=== PATIENT | male | born 1945 | race African-American/Black ===

== ENCOUNTER 2017-11-29 14:20 | Inpatient (IN) | payer OTHER, MEDICARE ==
[~2017-11-29] VITALS: Ht 170.2 cm; Wt 68.5 kg
[~2017-11-29 14:20] MED LIST: ASPI81; ENAL20TA81; METO50TA; TELM1TAB56; VERA240CR
[2017-11-29 14:34] VITALS: BP 154/93; PULSE 100; RESP 18; TEMP 97.7; O2SAT 97
--- NOTE | 2017-11-29 14:39 | PD ---
HPI Chief Complaint: Diabetic Time Seen by Provider: 14:32 Travel History International Travel<30 days: No Contact w/Intl Traveler<30days: No Traveled to known affect area: No History of Present Illness HPI 72-year-old male presents with complaint of high blood sugar. Been having polyuria and feeling weak and dizzy at times. He has had some borderline blood sugars in the past. He has checked his sugar several times over the last 2 days and they have been high. he has a history of COPD. He is on inhaled steroids but not oral steroids at this time he is not on any medication for diabetes he has been urinating frequently PFS Past Medical History High Cholesterol: Yes COPD: Yes Diabetes: Yes ("PRE") Patient Takes Glucophage: No Diminished Hearing: Yes Hypertension: Yes Renal Failure: Yes Tetanus Vaccination: > 5 Years Influenza Vaccination: Yes Past Surgical History Genitourinary Surgery: Yes (ENLARGED PROSTATE) Social History Alcohol Use: No Tobacco Use: Yes Substance Use: No Allergies-Medications (Allergen,Severity, Reaction): Coded Allergies: oxycodone (Verified Allergy, Severe, Nausea/Vomiting, 11/29/17) No Known Allergies (Verified Allergy, Mild, 09/11/06) Reported Meds & Prescriptions Reported Meds & Active Scripts Active Reported Budesonide Neb 0.25 Mg/2 Ml Neb 0.25 Mg NEB TID NEB Baclofen 10 Mg Tab 10 Mg PO TID Atorvastatin (Atorvastatin Calcium) 20 Mg Tab 20 Mg PO HS Benzonatate 100 Mg Cap 100 Mg PO TID PRN Albuterol Neb (Albuterol Sulfate) 2.5 Mg/3 Ml Neb 2.5 Mg NEB TID NEB PRN Symbicort Inh (Budesonide/Formoterol Fumarate) 160-4.5 Mcg/Act Aero 1 Puff INH Q12HR Ventolin Hfa 18 GM Inh (Albuterol Sulfate) 90 Mcg/Act Aer 2 Puff INH Q4-6H PRN Methazolamide 50 Mg Tab 50 Mg PO BID Vitamin D3 (Cholecalciferol) 2,000 Unit Cap 2,000 Units PO DAILY Aspirin 81 Mg Chew 81 Mg CHEW DAILY Trazodone (Trazodone HCl) 100 Mg Tablet 100 Mg PO HS Amlodipine (Amlodipine Besylate) 10 Mg Tab 10 Mg PO DAILY Review of Systems General / Constitutional: No: Fever, Chills Eyes: No: Diploplia, Blurred Vision HENT: No: Headaches, Vertigo Cardiovascular: No: Chest Pain or Discomfort, Palpitations Respiratory: Positive: Cough, No: Shortness of Breath Gastrointestinal: No: Nausea, Vomiting Genitourinary: Positive: Frequency, No: Urgency Musculoskeletal: No: Myalgias Skin: No Rash, No Itching Neurologic: No: Weakness Psychiatric: No: Anxiety Endocrine: Positive: Polyuria, Polydipsia, No: Heat Intolerance Hematologic/Lymphatic: No: Easy Bruising Physical Exam Narrative GENERAL: Well-developed male SKIN: Focused skin assessment warm/dry. HEAD: Atraumatic. Normocephalic. EYES: Pupils equal and round. No scleral icterus. No injection or drainage. ENT: No nasal bleeding or discharge. Mucous membranes pink and moist. NECK: Trachea midline. No JVD. CARDIOVASCULAR: Regular rate and rhythm. No murmur appreciated. RESPIRATORY: No accessory muscle use. Clear to auscultation. Breath sounds equal bilaterally. GASTROINTESTINAL: Abdomen soft, non-tender, nondistended. Hepatic and splenic margins not palpable. MUSCULOSKELETAL: No obvious deformities. No clubbing. No cyanosis. No edema. NEUROLOGICAL: Awake and alert. No obvious cranial nerve deficits. Motor grossly within normal limits. Normal speech. PSYCHIATRIC: Appropriate mood and affect; insight and judgment normal. Data Data Last Documented VS Vital Signs Date Time Temp Pulse Resp B/P (MAP) Pulse Ox O2 Delivery O2 Flow Rate FiO2 11/29/17 14:37 (113) 11/29/17 14:34 Room Air 11/29/17 14:34 97.7 100 18 97 Orders Orders Complete Blood Count With Diff (11/29/17 14:37) Basic Metabolic Panel (Bmp) (11/29/17 14:37) Urinalysis - C+S If Indicated (11/29/17 14:37) Beta Hydroxybutyrate (Acetone) (11/29/17 14:37) Sodium Chlor 0.9% 1000 Ml Inj (Ns 1000 M (11/29/17 14:45) Sodium Chlor 0.9% 1000 Ml Inj (Ns 1000 M (11/29/17 14:45) Insulin Human Regular Inj (Novolin R Inj (11/29/17 14:45) Electrocardiogram (11/29/17 15:22) Chest, Single Ap (11/29/17 15:22) Labs Laboratory Tests Test 11/29/17 14:45 11/29/17 14:50 White Blood Count 8.5 TH/MM3 Red Blood Count 5.30 MIL/MM3 Hemoglobin 15.6 GM/DL Hematocrit 47.3 % Mean Corpuscular Volume 89.2 FL Mean Corpuscular Hemoglobin 29.5 PG Mean Corpuscular Hemoglobin Concent 33.0 % Red Cell Distribution Width 12.9 % Platelet Count 165 TH/MM3 Mean Platelet Volume 8.3 FL Neutrophils (%) (Auto) 72.5 % Lymphocytes (%) (Auto) 14.9 % Monocytes (%) (Auto) 7.1 % Eosinophils (%) (Auto) 1.1 % Basophils (%) (Auto) 4.4 % Neutrophils # (Auto) 6.1 TH/MM3 Lymphocytes # (Auto) 1.3 TH/MM3 Monocytes # (Auto) 0.6 TH/MM3 Eosinophils # (Auto) 0.1 TH/MM3 Basophils # (Auto) 0.4 TH/MM3 CBC Comment DIFF FINAL Differential Comment Blood Urea Nitrogen 36 MG/DL Creatinine 2.70 MG/DL Random Glucose 816 MG/DL Calcium Level 9.2 MG/DL Sodium Level 120 MEQ/L Potassium Level 4.9 MEQ/L Chloride Level 88 MEQ/L Carbon Dioxide Level 23.0 MEQ/L Anion Gap 9 MEQ/L Estimat Glomerular Filtration Rate 28 ML/MIN B-Hydroxybutyrate 0.24 MMOL/L Urine Collection Type CLEAN CATCH Urine Color YELLOW Urine Turbidity CLEAR Urine pH 5.0 Urine Specific [place] 1.027 Urine Protein NEG mg/dL Urine Glucose (UA) 1000 OR GREATER mg/dL Urine Ketones NEG mg/dL Urine Occult Blood TRACE Urine Nitrite NEG Urine Bilirubin NEG Urine Urobilinogen 0.2 MG/DL Urine Leukocyte Esterase NEG Urine RBC 0-3 /hpf Urine WBC 0-2 /hpf Urine Squamous Epithelial Cells 0-5 /hpf Microscopic Urinalysis Comment CULT NOT INDICATED Urine Collection Time 14:50 MDM Medical Decision Making Medical Screen Exam Complete: Yes Emergency Medical Condition: Yes Medical Record Reviewed: Yes Differential Diagnosis Differential includes DKA, hyperglycemia, Narrative Course IV fluids were started. The patient's sodium has come back at 120 and his sugar is 816. His BUN is 36 with a creatinine of 2.7. He had blood work in 2012 here and at that time his creatinine was 2. His beta hydroxybutyrate is 0.24. Patient has hyperglycemia without acidosis Diagnosis Primary Impression: Uncontrolled diabetes mellitus Additional Impressions: Dehydration Hyponatremia Admitting Information Admitting Physician Requests: Admit London Christensen MD Nov 29, 2017 14:39
[2017-11-29] MEDS ORDERED: TRAZ100T10 PO (14:43)
[2017-11-29] MEDS ORDERED: BUDE0.25 NEB (14:43)
[2017-11-29] MEDS ORDERED: ALBU0.08 NEB (14:43)
[2017-11-29] MEDS ORDERED: VENTAER INH (14:43)
[2017-11-29] MEDS ORDERED: BENZ1CAP54 PO (14:43)
[2017-11-29] MEDS ORDERED: ASPI-516 CHEW (14:43)
[2017-11-29] MEDS ORDERED: BACL10TA PO (14:43)
[2017-11-29] MEDS ORDERED: ATOR20TA15 PO (14:43)
[2017-11-29] MEDS ORDERED: VITA2000 PO (14:43)
[2017-11-29] MEDS ORDERED: AMLO10TA2 PO (14:43)
[2017-11-29] MEDS ORDERED: METH50TA2 PO (14:43)
[2017-11-29] MEDS ORDERED: SYMB160A INH (14:43)
[2017-11-29] MEDS ORDERED: INSULIN HUMAN REGULAR 1,000 UNITS/10 ML VIAL SQ ONE ×2 (14:45→15:45)
[2017-11-29] MEDS ORDERED: SODIUM CHLOR 0.9% 1000 ML INJ 1,000 ML IV ONE ×2 (14:45)
[2017-11-29 14:56] LABS: AUTOMATED NEUTROPHIL # 6.1 TH/MM3 (1.8-7.7); BASOPHIL # 0.4 TH/MM3 (0-0.2); BASOPHIL % 4.4 % (0.0-2.0); EOSINOPHIL # 0.1 TH/MM3 (0-0.4); EOSINOPHIL % 1.1 % (0.0-4.0); HEMATOCRIT 47.3 % (39.0-51.0); HEMOGLOBIN 15.6 GM/DL (13.0-17.0); LYMPH % 14.9 % (9.0-44.0); LYMPHOCYTE # 1.3 TH/MM3 (1.0-4.8); MEAN CELL VOLUME 89.2 FL (80.0-100.0); MEAN CORPUSCULAR HEMOGLOBIN 29.5 PG (27.0-34.0); MEAN PLATELET VOLUME 8.3 FL (7.0-11.0); MONO % 7.1 % (0.0-8.0); MONOCYTE # 0.6 TH/MM3 (0-0.9); NEUT % 72.5 % (16.0-70.0); PLATELET COUNT 165 TH/MM3 (150-450); RED CELL DISTRIBUTION WIDTH 12.9 % (11.6-17.2); WHITE BLOOD COUNT 8.5 TH/MM3 (4.0-11.0)
[2017-11-29 15:13] LABS: BILIRUBIN, URINE NEG (NEG); BLOOD, URINE TRACE (NEG); GLUCOSE,URINE 1000 OR GREATER mg/dL (NEG); KETONE, URINE NEG (NEG); NITRITE,URINE NEG (NEG); URINE COLOR YELLOW (YELLW/STRAW); URINE LEUKOCYTE ESTERASE NEG (NEG)
[2017-11-29 15:13] LABS: CALCIUM 9.2 MG/DL (8.5-10.1); CREATININE 2.7 MG/DL (0.60-1.30)
[2017-11-29 15:18] LABS: RBC, URINE 0-3 /hpf (0-3); SQUAMOUS EPITHELIAL CELL URINE 0-5 /hpf (0-5); WBC, URINE 0-2 /hpf (0-5)
[2017-11-29] MEDS ORDERED: ACETAMINOPHEN 325 MG TAB PO PRN (15:45)
[2017-11-29] MEDS ORDERED: NALOXONE HCL 0.4 MG/ML AMP IV PUSH PRN (15:45)
[2017-11-29] MEDS ORDERED: GLUCAGON 1 MG/ML VIAL OTHER PRN (15:45)
[2017-11-29] MEDS ORDERED: DEXTROSE 50% IN WATER 50 ML VIAL(D50) IV PUSH PRN (15:45)
[2017-11-29] MEDS ORDERED: SODIUM CHLORIDE 0.9% FLUSH 10 ML FLUSH IV FLUSH PRN (15:45)
[2017-11-29] MEDS ORDERED: ALBUTEROL SULFATE 90 MCG/ACT HFA 8 GM INHALER INH PRN (15:45)
[2017-11-29] MEDS ORDERED: SENNOSIDES 8.6 MG TAB PO PRN (15:45)
--- NOTE | 2017-11-29 15:52 | RADRPT ---
EXAM DATE/TIME: 11/29/2017 15:36 [facility] COMPARISON: No previous studies available for comparison. INDICATIONS : Cough. MEDICAL HISTORY : Hypercholesterolemia. Diabetes mellitus type II. Chronic obstructive pulmonary disease. Hypertens ion. Renal failure. SURGICAL HISTORY : None. ENCOUNTER: Initial ACUITY: 1 day PAIN SCORE: 0/10 LOCATION: Bilateral chest FINDINGS: A single view of the chest demonstrates the lungs to be symmetrically aerated without evidence of mas s, infiltrate or effusion. The cardiomediastinal contours are unremarkable. Osseous structures are intact. CONCLUSION: Normal examination for a patient of this age. Lizandro Donohue MD on November 29, 2017 at 15:50 Board Certified Radiologist. This report was verified electronically.
[2017-11-29] MEDS ORDERED: ENOXAPARIN SODIUM 30 MG/0.3 ML SYRINGE SQ SCH (16:00)
--- NOTE | 2017-11-29 16:16 | HHI.HP ---
HPI Service [facility] Primary Care Physician No Primary Care Physician Admission Diagnosis UNCONTROLLED DIABETES Diagnoses: Chief Complaint: Polyuria, polydipsia, generalized weakness Travel History International Travel<30 Days: No Contact w/Intl Traveler <30 Da: No Traveled to Known Affected Are: No History of Present Illness This is a pleasant 72-year-old male patient with a known medical history of hyperlipidemia, COPD, hypertension and chronic renal failure who presented to the ED with polyuria, polydipsia and generalized weakness. Patient states the last week he has been feeling "groggy" and generally weak, states he is been drinking more water and having polyuria. He also complains of intermittent blurry vision which he relates to his glaucoma. Patient does state that he has been diagnosed with borderline diabetes in the past but not on any medications for diabetes. Upon presentation patient's random glucose was 816 with presence of glucose in the urine. Anion gap closed. No traces of ketones in the urine. He denies any recent illness including fever, chills, cough, headache, chest pain, abdominal pain, nausea, vomiting, diarrhea dysuria. Patient does see Dr. Cuadra, pulmonology, for management of his COPD. Denies any recent oral steroid use although has been prescribed antibiotics for upper respiratory infection. Patient also sees Dr. Lopez, nephrology, for chronic kidney disease. Review of Systems Constitutional: DENIES: Fatigue, Fever Endocrine: COMPLAINS OF: Polydipsia, Polyuria Eyes: COMPLAINS OF: Blurred vision, DENIES: Diplopia Respiratory: DENIES: Cough, Sputum production, Shortness of breath Cardiovascular: DENIES: Chest pain, Palpitations Gastrointestinal: DENIES: Abdominal pain, Black stools, Bloody stools, Constipation, Diarrhea, Nausea, Vomiting Neurologic: DENIES: Abnormal gait Psychiatric: DENIES: Anxiety Except as stated in HPI: all other systems reviewed are Neg Past Family Social History Past Medical History Hypertension Hyperlipidemia COPD Chronic renal failure Glaucoma Past Surgical History Enlarged prostate repair Unspecified abdominal/bladder repair Left leg unspecified repair for broken bones Reported Medications Reported Meds & Active Scripts Active Reported Budesonide Neb 0.25 Mg/2 Ml Neb 0.25 Mg NEB TID NEB Baclofen 10 Mg Tab 10 Mg PO TID Atorvastatin (Atorvastatin Calcium) 20 Mg Tab 20 Mg PO HS Benzonatate 100 Mg Cap 100 Mg PO TID PRN Albuterol Neb (Albuterol Sulfate) 2.5 Mg/3 Ml Neb 2.5 Mg NEB TID NEB PRN Symbicort Inh (Budesonide/Formoterol Fumarate) 160-4.5 Mcg/Act Aero 1 Puff INH Q12HR Ventolin Hfa 18 GM Inh (Albuterol Sulfate) 90 Mcg/Act Aer 2 Puff INH Q4-6H PRN Methazolamide 50 Mg Tab 50 Mg PO BID Vitamin D3 (Cholecalciferol) 2,000 Unit Cap 2,000 Units PO DAILY Aspirin 81 Mg Chew 81 Mg CHEW DAILY Trazodone (Trazodone HCl) 100 Mg Tablet 100 Mg PO HS Amlodipine (Amlodipine Besylate) 10 Mg Tab 10 Mg PO DAILY Allergies: Coded Allergies: oxycodone (Verified Allergy, Severe, Nausea/Vomiting, 11/29/17) Active Ordered Medications Current Medications Medications (Trade) Dose Ordered Sig/Crescencio Route Start Time Stop Time Status Last Admin (NS Flush) 2 ml UNSCH PRN IV FLUSH 11/29/17 15:45 (NS Flush) 2 ml BID IV FLUSH 11/29/17 21:00 (Tylenol) 650 mg Q4H PRN PO 11/29/17 15:45 (Lovenox Inj) 30 mg DAILY@1600 SQ 11/29/17 16:00 (Narcan Inj) 0.4 mg UNSCH PRN IV PUSH 11/29/17 15:45 (Senokot) 17.2 mg Q12H PRN PO 11/29/17 15:45 (D50w (Vial) Inj) 50 ml UNSCH PRN IV PUSH 11/29/17 15:45 (Glucagon Inj) 1 mg UNSCH PRN OTHER 11/29/17 15:45 (NovoLOG SUPPLEMENTAL SCALE) 1 ACHS SLIDING SCALE SQ 11/29/17 17:00 (Proair Hfa Inh) 2 puff Q6HR PRN INH 11/29/17 15:45 (Norvasc) 10 mg DAILY PO 11/30/17 09:00 (Aspirin Chew) 81 mg DAILY CHEW 11/30/17 09:00 (Lipitor) 20 mg HS PO 11/29/17 21:00 (Lioresal) 10 mg TID PO 11/29/17 18:00 (Desyrel) 100 mg HS PO 11/29/17 21:00 Family History Maternal medical history significant for diabetes. Social History Patient denies any current tobacco use, states he quit smoking 5 years ago. Denies any alcohol or illicit drug use. Physical Exam Vital Signs Vital Signs Date Time Temp Pulse Resp B/P (MAP) Pulse Ox O2 Delivery O2 Flow Rate FiO2 11/29/17 14:37 (113) 11/29/17 14:34 Room Air 11/29/17 14:34 97.7 100 18 154/93 (113) 97 Room Air Physical Exam GENERAL: Well-developed, well-nourished pleasant male patient in [facility]. SKIN: Warm and dry. No rash. HEAD: Normocephalic. Atraumatic. EYES: Pupils equal and round. No scleral icterus. No injection or drainage. ENT: No nasal bleeding or discharge. Mucous membranes pink and moist. NECK: Supple. Trachea midline. CARDIOVASCULAR: Regular rate and rhythm. S1, S2 noted. No murmur appreciated. RESPIRATORY: No accessory muscle use. Clear to auscultation. Breath sounds equal bilaterally. GASTROINTESTINAL: Abdomen soft, non-tender, nondistended. Normoactive bowel sounds x4. MUSCULOSKELETAL: No obvious deformities. Extremities without clubbing, cyanosis , or edema. NEUROLOGICAL: Awake and alert. No obvious cranial nerve deficits. Motor grossly within normal limits. 5/5 muscle strength in bilateral upper and lower extremities. Normal speech. Laboratory Laboratory Tests Test 11/29/17 14:45 11/29/17 14:50 White Blood Count 8.5 Red Blood Count 5.30 Hemoglobin 15.6 Hematocrit 47.3 Mean Corpuscular Volume 89.2 Mean Corpuscular Hemoglobin 29.5 Mean Corpuscular Hemoglobin Concent 33.0 Red Cell Distribution Width 12.9 Platelet Count 165 Mean Platelet Volume 8.3 Neutrophils (%) (Auto) 72.5 Lymphocytes (%) (Auto) 14.9 Monocytes (%) (Auto) 7.1 Eosinophils (%) (Auto) 1.1 Basophils (%) (Auto) 4.4 Neutrophils # (Auto) 6.1 Lymphocytes # (Auto) 1.3 Monocytes # (Auto) 0.6 Eosinophils # (Auto) 0.1 Basophils # (Auto) 0.4 CBC Comment DIFF FINAL Differential Comment Blood Urea Nitrogen 36 Creatinine 2.70 Random Glucose 816 Calcium Level 9.2 Sodium Level 120 Potassium Level 4.9 Chloride Level 88 Carbon Dioxide Level 23.0 Anion Gap 9 Estimat Glomerular Filtration Rate 28 B-Hydroxybutyrate 0.24 Urine Collection Type CLEAN CATCH Urine Color YELLOW Urine Turbidity CLEAR Urine pH 5.0 Urine Specific [place] 1.027 Urine Protein NEG Urine Glucose (UA) 1000 OR GREATER Urine Ketones NEG Urine Occult Blood TRACE Urine Nitrite NEG Urine Bilirubin NEG Urine Urobilinogen 0.2 Urine Leukocyte Esterase NEG Urine RBC 0-3 Urine WBC 0-2 Urine Squamous Epithelial Cells 0-5 Microscopic Urinalysis Comment CULT NOT INDICATED Urine Collection Time 14:50 Result Diagram: 11/29/17 1445 11/29/17 1445 Septic Shock Reassessment Septic shock perfusion: reassessment completed Caprini VTE Risk Assessment Caprini VTE Risk Assessment: Mod/High Risk (score >= 2) Caprini Risk Assessment Model Point Value = 1 Point Value = 2 Point Value = 3 Point Value = 5 Age 41-60 Minor surgery BMI > 25 kg/m2 Swollen legs Varicose veins or History of unexplained or recurrent spontaneous Oral contraceptives or hormone replacement Sepsis (< 1 month) Serious lung disease, including pneumonia (< 1 month) Abnormal pulmonary function Acute myocardial infarction Congestive heart failure (< 1 month) History of inflammatory bowel disease Medical patient at bed rest Age 61-74 Arthroscopic surgery Major open surgery (> 45 min) Laparoscopic surgery (> 45 min) Malignancy Confined to bed (> 72 hours) Immobilizing plaster cast Central venous access Age >= 75 History of VTE Family history of VTE Factor V Leiden Prothrombin [id number] Lupus anticoagulant Anticardiolipin antibodies Elevated serum homocysteine Heparin-induced thrombocytopenia Other congenital or acquired thrombophilia Stroke (< 1 month) Elective arthroplasty Hip, pelvis, or leg fracture Acute spinal cord injury (< 1 month) Prophylaxis Regimen Total Risk Factor Score Risk Level Prophylaxis Regimen 0-1 Low Early ambulation 2 Moderate Order ONE of the following: *Sequential Compression Device (SCD) *Heparin 5000 units SQ BID 3-4 Higher Order ONE of the following medications: *Heparin 5000 units SQ TID *Enoxaparin/Lovenox 40 mg SQ daily (WT < 150 kg, CrCl > 30 mL/min) *Enoxaparin/Lovenox 30 mg SQ daily (WT < 150 kg, CrCl > 10-29 mL/min) *Enoxaparin/Lovenox 30 mg SQ BID (WT < 150 kg, CrCl > 30 mL/min) AND/OR *Sequential Compression Device (SCD) 5 or more Highest Order ONE of the following medications: *Heparin 5000 units SQ TID (Preferred with Epidurals) *Enoxaparin/Lovenox 40 mg SQ daily (WT < 150 kg, CrCl > 30 mL/min) *Enoxaparin/Lovenox 30 mg SQ daily (WT < 150 kg, CrCl > 10-29 mL/min) *Enoxaparin/Lovenox 30 mg SQ BID (WT < 150 kg, CrCl > 30 mL/min) AND *Sequential Compression Device (SCD) Assessment and Plan Problem List: (1) Uncontrolled diabetes mellitus ICD Code: E11.65 - Type 2 diabetes mellitus with hyperglycemia Status: Acute (2) Hyponatremia ICD Code: E87.1 - Hypo-osmolality and hyponatremia Status: Acute (3) Dehydration ICD Code: E86.0 - Dehydration Status: Acute Assessment and Plan This is a pleasant 72-year-old male patient with a known medical history of hyperlipidemia, COPD, hypertension and chronic renal failure who presented to the ED with polyuria, polydipsia and generalized weakness. Diabetes mellitus with uncontrolled blood sugar, polyuria and polydipsia Dehydration suspect secondary to above. Severe hyponatremia, suspect secondary to above Random glucose on presentation 816. Hemoglobin A1c and lipid panel pending. Follow. Will request diabetic counselor to come see patient. Appreciate input recommendations. Patient given 20 units subcu insulin in ED. Accu-Chek before meals at bedtime, insulin sliding scale, cover as needed. Monitor blood sugar trends. UA showing presence of glucose. No ketones. Anion gap closed. NA 120. Status post 2 L NS bolus in ED. Will follow BMP in a.m. Follow NA level. Chronic kidney disease stage III: GFR 28. Creatinine 2.7. No recent labs, reviewed baseline appears to be around creatinine of 2. COPD not exacerbation: Continue home albuterol inhaler. Supportive care. Chest x-ray reviewed showing no acute cardiopulmonary disease. Hypertension, chronic: Continue home medications. Continue to monitor BP trends. Hyperlipidemia, chronic: Continue home atorvastatin. DVT prophylaxis: SCDs. Lovenox. Feliberto,Cindy [employer]RAFTER [employer] Nov 29, 2017 16:16
[2017-11-29 16:57] VITALS: BP 133/76; PULSE 74; RESP 16; TEMP 97.8; O2SAT 98
[2017-11-29 18:00] VITALS: BP 146/90; PULSE 86; RESP 20; TEMP 97.1; O2SAT 98
[2017-11-29] MEDS: BACLOFEN 10 MG TAB PO SCH (18:03)
[2017-11-29] MEDS: INSULIN ASPART SUPPLEMENTAL SCALE SQ SCH ×2 (18:06→21:00)
[2017-11-29 20:00] VITALS: BP_SYST 112; BP_SYST 115; BP_DIAS 58; BP_DIAS 64; PULSE 77; PULSE 91; RESP 20; TEMP 98.4; TEMP 99; O2SAT 95; O2SAT 97
[2017-11-29] MEDS ORDERED: ATORVASTATIN 20 MG TAB PO SCH (21:00)
[2017-11-29] MEDS ORDERED: traZODone HCL 100 MG TAB PO SCH (21:00)
[2017-11-29] MEDS: SODIUM CHLORIDE 0.9% FLUSH 10 ML FLUSH IV FLUSH SCH (22:20)
[2017-11-30] VITALS: BP 134/66; PULSE 77; RESP 20; TEMP 97.4; O2SAT 97
[2017-11-30 06:52] LABS: AUTOMATED NEUTROPHIL # 7.8 TH/MM3 (1.8-7.7); BASOPHIL % 0.1 % (0.0-2.0); EOSINOPHIL # 0.1 TH/MM3 (0-0.4); EOSINOPHIL % 1.4 % (0.0-4.0); HEMATOCRIT 44.8 % (39.0-51.0); LYMPH % 16.2 % (9.0-44.0); LYMPHOCYTE # 1.6 TH/MM3 (1.0-4.8); MEAN CELL VOLUME 88.5 FL (80.0-100.0); MEAN CORPUSCULAR HEMOGLOBIN 29.7 PG (27.0-34.0); MEAN CORPUSCULAR HGB CONC 33.5 % (32.0-36.0); MEAN PLATELET VOLUME 8.6 FL (7.0-11.0); MONO % 4.2 % (0.0-8.0); MONOCYTE # 0.4 TH/MM3 (0-0.9); NEUT % 78.1 % (16.0-70.0); PLATELET COUNT 165 TH/MM3 (150-450); RED BLOOD COUNT 5.05 MIL/MM3 (4.50-5.90); RED CELL DISTRIBUTION WIDTH 13.2 % (11.6-17.2); WHITE BLOOD COUNT 9.9 TH/MM3 (4.0-11.0)
[2017-11-30 07:14] LABS: BICARBONATE 24.1 MEQ/L (21.0-32.0); CALCIUM 8.7 MG/DL (8.5-10.1); CREATININE 2.1 MG/DL (0.60-1.30)
[2017-11-30 08:00] VITALS: BP 149/78; PULSE 75; RESP 20; TEMP 98.3; O2SAT 97
[2017-11-30] MEDS: INSULIN ASPART SUPPLEMENTAL SCALE SQ SCH ×2 (08:00→12:00)
[2017-11-30] MEDS ORDERED: ASPIRIN 81 MG CHEW TAB CHEW SCH (09:00)
[2017-11-30] MEDS: SODIUM CHLORIDE 0.9% FLUSH 10 ML FLUSH IV FLUSH SCH (09:00)
[2017-11-30] MEDS: BACLOFEN 10 MG TAB PO SCH ×2 (09:06→13:00)
[2017-11-30 09:50] LABS: CHOLESTEROL/ HDL RATIO 1.83 RATIO; HDL CHOLESTEROL 51.8 MG/DL (40.0-60.0)
--- NOTE | 2017-11-30 11:50 | HHI.PR ---
Subjective Remarks Follow-up hyperglycemia. Patient seen and examined, denies any acute events overnight. Blood sugar decreased today. Awaiting A1c and production technician. Tolerating p.o. intake, denies any nausea or vomiting. Patient states he has been diagnosed with prediabetes, not on any medication, and [facility] has sent him a glucometer and all supplies but he has not been checking it frequently at home. Hyponatremia improved. Objective Vitals Vital Signs Date Time Temp Pulse Resp B/P (MAP) Pulse Ox O2 Delivery O2 Flow Rate FiO2 11/30/17 08:00 98.3 75 20 149/78 (101) 97 11/30/17 00:00 97.4 77 20 134/66 (88) 97 11/29/17 20:00 98.4 91 20 112/64 (80) 97 11/29/17 18:00 97.1 86 20 146/90 (108) 98 11/29/17 17:42 11/29/17 16:57 97.8 74 16 133/76 (95) 98 Room Air 11/29/17 14:37 (113) 11/29/17 14:34 Room Air 11/29/17 14:34 97.7 100 18 154/93 (113) 97 Room Air I/O 11/29/17 11/29/17 11/29/17 11/30/17 11/30/17 11/30/17 06:59 14:59 22:59 06:59 14:59 22:59 Intake Total 2000 ml 360 ml Output Total 250 ml Balance 1750 ml 360 ml Intake Oral 360 ml IV Total 2000 ml Output Urine Total 250 ml # Voids 1 3 # Bowel Movements 0 Result Diagram: 11/30/17 0558 11/30/17 0558 Imaging Last Impressions Chest X-Ray 11/29/17 1522 Signed Impressions: Service Date/Time: Wednesday, November 29, 2017 15:36 - CONCLUSION: Normal examination for a patient of this age. Lizandro Donohue MD Objective Remarks GENERAL: Well-developed, well-nourished patient in [facility]. SKIN: Warm and dry. No rash. HEAD: Normocephalic. Atraumatic. EYES: Pupils equal and round. No scleral icterus. No injection or drainage. ENT: No nasal bleeding or discharge. Mucous membranes pink and moist. NECK: Supple. Trachea midline. CARDIOVASCULAR: Regular rate and rhythm. S1, S2 noted. No murmur appreciated. RESPIRATORY: No accessory muscle use. Clear to auscultation. Breath sounds equal bilaterally. GASTROINTESTINAL: Abdomen soft, non-tender, nondistended. Normoactive bowel sounds x4. MUSCULOSKELETAL: No obvious deformities. Extremities without clubbing, cyanosis , or edema. NEUROLOGICAL: Awake and alert. No obvious cranial nerve deficits. Motor grossly within normal limits. 5/5 muscle strength in bilateral upper and lower extremities. Normal speech. PSYCHIATRIC: Appropriate mood and affect; insight and judgment normal. A/P Problem List: (1) Uncontrolled diabetes mellitus ICD Code: E11.65 - Type 2 diabetes mellitus with hyperglycemia Status: Acute (2) Hyponatremia ICD Code: E87.1 - Hypo-osmolality and hyponatremia Status: Acute (3) Dehydration ICD Code: E86.0 - Dehydration Status: Acute Assessment and Plan This is a pleasant 72-year-old male patient with a known medical history of hyperlipidemia, COPD, hypertension and chronic renal failure who presented to the ED with polyuria, polydipsia and generalized weakness. Diabetes mellitus with uncontrolled blood sugar, polyuria and polydipsia Dehydration suspect secondary to above. Resolved. Severe hyponatremia, suspect secondary to above. Resolved. Random glucose on presentation 816. Hemoglobin A1c pending. Follow. Lipid panel reviewed, unremarkable. Awaiting diabetic counseling. Patient given 20 units subcu insulin in ED. Accu-Chek before meals at bedtime, insulin sliding scale, cover as needed. Monitor blood sugar trends. UA showing presence of glucose. No ketones. Anion gap closed. NA 120 yesterday on presentation. Status post 2 L NS bolus in ED. sodium 133. Chronic kidney disease stage III: GFR 28. Creatinine 2.1 today. No recent labs , reviewed baseline appears to be around creatinine of 2. COPD not exacerbation: Continue home albuterol inhaler. Supportive care. Chest x-ray reviewed showing no acute cardiopulmonary disease. Hypertension, chronic: Continue home medications. Continue to monitor BP trends. Controlled. Hyperlipidemia, chronic: Continue home atorvastatin. DVT prophylaxis: SCDs. Lovenox. Discharge Planning Will discharge patient today, production technician in to see patient. All symptoms improved. Blood sugar more controlled. A1c pending, encouraged patient to f/u with PCP and request result. Patient is stable at this time and agreeable to the plan. Cindy Dao Nov 30, 2017 11:50
[2017-11-30 12:00] VITALS: BP 143/75; PULSE 87; RESP 20; TEMP 98.2; O2SAT 96
--- NOTE | 2017-11-30 14:20 | EKG ---
Date Performed: 11/29/2017 Time Performed: 15:31:26 PTAGE: 72 years EKG: Sinus rhythm NORMAL ECG NO PREVIOUS TRACING DOCTOR: Redd Prieto Interpretating Date/Time 11/30/2017 14:20:03
[2017-11-30] MEDS ORDERED: TRAD5TAB PO (14:41)
--- NOTE | 2017-11-30 14:41 | HHI.DCPOC ---
Discharge Care Plan Diagnosis: (1) Hyponatremia (2) Uncontrolled diabetes mellitus (3) Dehydration Goals to Promote Your Health * To prevent worsening of your condition and complications * To maintain your health at the optimal level Directions to Meet Your Goals Take your medications as prescribed Follow your dietary instruction Follow activity as directed Keep your appointments as scheduled Take your immunizations and boosters as scheduled If your symptoms worsen call your PCP, if no PCP go to Urgent Care Center or Emergency Room Smoking is Dangerous to Your Health. Avoid second hand smoke Call the 24-hour hour crisis hotline for domestic abuse at Cindy Dao Nov 30, 2017 14:41
[2017-12-02 22:42] LABS: HEMOGLOBIN A1C 10.5 % (4.3-6.0)
== END 2017-11-30 16:55 | disposition home or self-care (01) | DRG 638 ==
LOC: PHED 14:20 → PHEDA 15:38 → PH3B 17:38
PROVIDERS: ADMIT Hospitalist; ATTEND Hospitalist
DX: E11.65 Type 2 diabetes mellitus with hyperglycemia (principal); E87.1 Hypo-osmolality and hyponatremia; J44.9 Chronic obstructive pulmonary disease, unspecified; E11.22 Type 2 diabetes mellitus with diabetic chronic kidney disease; I12.9 Hypertensive chronic kidney disease with stage 1 through stage 4 chronic kidney disease, or unspecified chronic kidney disease; N18.3 Chronic kidney disease, stage 3 (moderate); E86.0 Dehydration; E78.5 Hyperlipidemia, unspecified; H40.9 Unspecified glaucoma; H91.90 Unspecified hearing loss, unspecified ear; Z87.891 Personal history of nicotine dependence; Z88.5 Allergy status to narcotic agent
CPT/HCPCS: 71045; 80048; 80061; 81001; 82010; 82948; 83036; 85025; 93005; 96360; 96372; J1650; J1815; J7030